=== PATIENT | male | born 1965 | race African-American/Black ===

== ENCOUNTER 2019-12-15 16:11 | Emergency (ER) | payer MEDICAID, OTHER ==
[~2019-12-15] VITALS: Ht 172.7 cm; Wt 72.6 kg
[2019-12-15 16:18] VITALS: BP 128/74
--- NOTE | 2019-12-15 16:28 | NUR ---
ED Nurse Note: Pt from street and was brought in by 68 due to erratic behavior and SI. Pt was reported that he simon not take his medications and he ran out of it. Pt claims that he wants to jump in front of traffic/cars. AAO x4, ambulates with steady gait with non labored breathing. Noted pts appearance is dirty and with foul odor. Pt is very talkative with repetitive words and pressured speech.
--- NOTE | 2019-12-15 16:30 | NUR ---
ED Nurse Note: [employer] at the bed side
--- NOTE | 2019-12-15 16:35 | NUR ---
ED Nurse Note: Pt went to the rest room accompanied by janelle whipple.
--- NOTE | 2019-12-15 16:43 | NUR ---
ED Nurse Note: Pt still in the restroom until now. Hollie whipple and Phani waiting for pt to come out from restroom.
--- NOTE | 2019-12-15 16:45 | NUR ---
ED Nurse Note: Pt is noted to be very uncooperative and resistive to care. Pt yells and curses at ED staff. Pt states "Fuck you bitch! What are you doing?" Pt was oriented that he is in the ED and is on 5150 hold. Eron was notified.
--- NOTE | 2019-12-15 16:47 | NUR ---
Kirstin davila in EDM - 12/15/19 at 1718 by SUHAS ED Nurse Note: Pt still in the restroom until now. Hollie whipple and Phani waiting for pt to come out from restroom.
--- NOTE | 2019-12-15 16:55 | NUR ---
ED Nurse Note: Pt still yelling and being resistive to ED care. RN explained to pt that we need blood works ordered by the PA to evaluate him. Pt is rude to ED staff and keeps on yelling." Hollie Baig at the bed side. Security called and NANCY hunter was notified.
[2019-12-15] MEDS ORDERED: DiphenhydrAMINE 50mg/ml Inj IM ONE (17:00)
[2019-12-15] MEDS ORDERED: Haloperidol 5mg/ml Inj IM ONE (17:00)
[2019-12-15] MEDS ORDERED: LORazepam Inj 2mg/ml 1ml IM ONE (17:00)
[2019-12-15] MEDS: DiphenhydrAMINE 50mg/ml Inj IVP ONE ×2 (17:00→17:09)
--- NOTE | 2019-12-15 17:00 | NUR ---
ED Nurse Note: Urine collected from urinal then sent to lab.
--- NOTE | 2019-12-15 17:17 | NUR ---
Pts belongings has been logged and placed in Psych locker #3
--- NOTE | 2019-12-15 17:18 | NUR ---
ED Nurse Note: belongings placed in psych locker #3 with pt's wheelchair in storage room.
--- NOTE | 2019-12-15 17:37 | Emergency Room Report ---
History of Present Illness General Chief Complaint: Suicidal Source: EMS (Uri Alberto) Present Illness HPI 54-year-old male with unknown psychiatric history brought in by paramedics and put on 5150 hold by [employer] due to suicidal ideation and wanting to jump in front of traffic. Patient is rude to the staff and resisting medication. Patient is semi-combative and security had to come and calm patient down. Denies pain, chest pain, shortness of breath, headache and dizziness. Reports that he usually takes Remeron does not want any other medication. Patient keeps being loud and yelling at the staff. Denies any drug use, alcohol intake, tobacco smoke. Upon arrival patient went to the restroom and was in restroom for a long time charging his phone not coming out. Patient had to be escorted out of the restroom. After being given Haldol, Benadryl, and Ativan IM patient was called and we were able to draw blood. Has suicidal ideation however denies HI (Uri Alberto) Allergies: Coded Allergies: DIPHENHYDRAMINE (Verified Allergy, Unknown, 12/15/19) Uncoded Allergies: PENICILLIN (Allergy, Unknown, 12/15/19) COVID-19 Screening COVID-19 risk:Contact w/high r: No COVID-19 risk:Travel to affect: No Has patient experienced garza: No COVID-19 Testing performed HAY CHOPPER: No (Uri Alberto) Patient History Past Medical History: see triage record Past Surgical History: unable to obtain Family History: unable to obtain Immunizations: UTD Reviewed Nursing Documentation: PMH: Agreed; PSxH: Agreed (Uri Alberto) Nursing Documentation-PMH Hx Cardiac Problems: No Hx Hypertension: No Hx Pacemaker: No Hx Asthma: No Hx COPD: No Hx Diabetes: No Hx Cancer: No Hx Gastrointestinal Problems: No Hx Dialysis: No History Of Psychiatric Problem: Yes Hx Neurological Problems: No Hx Cerebrovascular Accident: No Hx Seizures: No (Uri Alberto) Review of Systems All Other Systems: negative except mentioned in HPI (Uri Alberto) Physical Exam Vital Signs Date Time Temp Pulse Resp B/P (MAP) Pulse Ox O2 Delivery O2 Flow Rate FiO2 7/7/20 16:18 98.1 80 16 128/74 (92) 99 Room Air Sp02 EP Interpretation: reviewed, normal General Appearance: alert/responsive, no apparent distress, GCS 15, non-toxic Head: atraumatic Eyes: PERRL, lids + conjunctiva normal ENT: hearing intact, no angioedema Neck: supple/symm/no masses, no meningismus Respiratory: effort normal, no wheezing, chest symmetrical Cardiovascular: regular rate, rhythm, no edema Gastrointestinal: non-tender, no mass, non-distended, no rebound/guarding, normal bowel sounds Musculoskeletal: gait & station normal Neurologic: CN II-XII intact, oriented x3 Psychiatric: judgment & insight normal, anxious Suicide Risk Assessment: Suicidal Ideation: Yes Had intent to initiate attempt: Yes Pt's plan for suicide attempt: Yes Has means to complete attempt: Yes Skin: no rash Lymphatic: normal inspection (Uir Alberto) Medical Decision Making PA Attestation All diagnoses and treatment plans were reviewed and discussed with my supervising physician Dr. Garcia (Uri Alberto) PA Attestation I participate in the care of this patient along with NANCY Baker and agree with treatment plan. Briefly, this a 54-year-old male brought in on 5150 hold by [employer] for suicidal ideation. Patient was agitated with staff and required sedation both for his safety and for staff safety. He returned positive for amphetamines otherwise tox screen and alcohol levels are negative. Other labs within normal limits. He is sleeping comfortably but will cry psychiatric evaluation. Will arrange for transfer to a psychiatric facility. He is stable and medically cleared for transfer. (Gus Garcia MD) Diagnostic Impression: Primary Impression: Suicidal ideation Additional Impression: Methamphetamine abuse ER Course 54-year-old male with unknown psychiatric history brought in by paramedics and put on 5150 hold by [employer] due to suicidal ideation and wanting to jump in front of traffic. Patient is rude to the staff and resisting medication. Patient is semi-combative and security had to come and calm patient down. Denies pain, chest pain, shortness of breath, headache and dizziness. Reports that he usually takes Remeron does not want any other medication. Patient keeps being loud and yelling at the staff. Denies any drug use, alcohol intake, tobacco smoke. Upon arrival patient went to the restroom and was in restroom for a long time charging his phone not coming out. Patient had to be escorted out of the restroom. After being given Haldol, Benadryl, and Ativan IM patient was called and we were able to draw blood. Has suicidal ideation however denies HI Ddx considered but are not limited to: generalized anxiety disorder, panic attack, depression with psycotic featurs, bipolar disorder, drug overdose Vital signs: are WNL, pt. is afebrile H&PE are most consistent with: Suicidal ideation, methamphetamine abuse ORDERS: Psychiatric order set ED INTERVENTIONS: Haldol 5 mg IM, Ativan 1 mg IM, Benadryl 25 mg IM Patient is medically cleared Patient to be transferred to psychiatric facility. (Uri Alberto) Last Vital Signs Date Time Temp Pulse Resp B/P (MAP) Pulse Ox O2 Delivery O2 Flow Rate FiO2 12/15/19 16:28 80 16 Room Air 12/15/19 16:18 98.1 128/74 (92) 99 (Uri Alberto) Disposition: PSYCH HOSP/UNIT Condition: Stable Referrals: [facility],REFERRING (PCP) Uri Alberto Dec 15, 2019 17:37 Gus Garcia MD Dec 15, 2019 18:31
[2019-12-15 17:39] LABS: HEMATOCRIT 43.9 % (42.0-52.0); MEAN CORPUSCULAR VOLUME 86 FL (80-99); PLATELET COUNT 251 K/UL (150-450); RED BLOOD COUNT 5.13 M/UL (4.70-6.10); WHITE BLOOD COUNT 2.6 K/UL (4.8-10.8)
[2019-12-15 17:40] LABS: BASOPHILS % (AUTO) 3.1 % (0.0-2.0); EOSINOPHILS % (AUTO) 1.6 % (0.0-3.0); LYMPHOCYTES % (AUTO) 24.2 % (20.0-45.0); MONOCYTES % (AUTO) 10.5 % (1.0-10.0); NEUTROPHILS % (AUTO) 60.7 % (45.0-75.0)
[2019-12-15 17:50] LABS: ANION GAP 12 mmol/L (5-15); BLOOD UREA NITROGEN 17 mg/dL (7-18); CARBON DIOXIDE 26 MMOL/L (21-32); CHLORIDE 105 MMOL/L (98-107); CREATININE 1.3 MG/DL (0.55-1.30); POTASSIUM 3.6 MMOL/L (3.5-5.1); SODIUM 143 MMOL/L (136-145)
[2019-12-15 18:03] LABS: ALANINE AMINOTRANSFERASE 53 U/L (12-78); ALBUMIN/GLOBULIN RATIO 1.3 (1.0-2.7); ALKALINE PHOSPHATASE 69 U/L (46-116); ASPARTATE AMINO TRANSFERASE 79 U/L (15-37); BILIRUBIN,TOTAL 0.3 MG/DL (0.2-1.0)
[2019-12-15 18:49] VITALS: BP 120/82
--- NOTE | 2019-12-15 19:07 | NUR ---
HAND-OFF: Report given to bucky ACEVEDO.
--- NOTE | 2019-12-15 19:10 | NUR ---
ED Nurse Note: Report received from KRISTINA Lerner. Pt appears to be sleeping in bed, NAD. Safety measures and suicide precuations in place with RN bedside. Will continue to closely monitor.
[2019-12-15 22:00] VITALS: BP 121/82
--- NOTE | 2019-12-15 22:00 | NUR ---
ED Nurse Note: Pt remains sleeping at this time. RN bedside. All safety measures met and suicide precautions in place.
[2019-12-16 01:00] VITALS: BP 129/75
--- NOTE | 2019-12-16 01:00 | NUR ---
ED Nurse Note: Pt is resting in bed. Pt vital signs assessed and are stable, but pt is slightly uncooperative with care. Pt won't answer questions at this time. NAD noted. RN bedside, will continue to closely monitor.
--- NOTE | 2019-12-16 03:00 | NUR ---
ED Nurse Note: Pt is in bed with eyes closed. Pt offered oral hydration and nourishment. Pt not receptive to speaking with RN and did not accept offer. Will continue to monitor. RN bedside for safety measures.
--- NOTE | 2019-12-16 04:01 | NUR ---
ED Nurse Note: [facility] called. No beds available per Raji. [facility] called, no beds per Nancy. [facility] called. Spoke to Fareed Will fax clinicals and facesheet for review.
[2019-12-16 05:00] VITALS: BP 119/75
--- NOTE | 2019-12-16 05:00 | NUR ---
ED Nurse Note: Pt is in room in bed with eyes closed. Breathing is normal and unlabored. NAD. RN bedside. Will continue to monitor with safety measures in place.
--- NOTE | 2019-12-16 07:11 | NUR ---
HAND-OFF: Report given to KRISTINA Rojas.
--- NOTE | 2019-12-16 08:28 | NUR ---
ED Nurse Note:pt. is sleeping, sitter is in the room, VSS, no signs of distress
--- NOTE | 2019-12-16 08:30 | NUR ---
grecia from [facility] called need covid-19 test to accept the patient
--- NOTE | 2019-12-16 08:40 | NUR ---
rapid covid test done
--- NOTE | 2019-12-16 10:50 | NUR ---
per grecia from intake will call back as soon as the bed avilable
[2019-12-16 11:43] VITALS: BP 129/89
--- NOTE | 2019-12-16 11:43 | NUR ---
ED Nurse Note: Patient sleeping in bed. Sitter at bedside. Bed in lowest position. Regular, unlaobred breathing noted. No facial grimacing or guarding noted.
--- NOTE | 2019-12-16 12:15 | NUR ---
ED Nurse Note: Report given to KRISTINA Rojas
[2019-12-16] MEDS ORDERED: LORazepam 1mg tab ORAL ONE (14:30)
--- NOTE | 2019-12-16 15:22 | NUR ---
ED Nurse Note:called [facility] with report given to Bonifacio
[2019-12-16 15:24] VITALS: BP 129/89
--- NOTE | 2019-12-16 15:45 | NUR ---
ED Nurse Note:pt. was picked up by transport for transfer to [facility], iv was removed and all personal belongings returned to pt. ,VSS
--- NOTE | 2019-12-16 16:26 | Diagnostic Imaging Report ---
Indication: Cough Technique: One view of the chest Comparison: none Findings: Lungs and pleural spaces are clear. Heart size is normal. Impression: No acute process
== END 2019-12-16 15:52 ==
LOC: EDBD 16:11 → EMR 16:57
DX: R45.851 Suicidal ideations (principal); F15.10 Other stimulant abuse, uncomplicated; Z88.0 Allergy status to penicillin; Z88.8 Allergy status to other drugs, medicaments and biological substances
CPT/HCPCS: 36415; 71045; 80053; 80307; 85025; 96372; G0480; G0481; J1200; J1630; U0002; Z7502; 99285